=== PATIENT | male | born 1980 | race Hispanic/Latino ===

== ENCOUNTER 2018-05-29 09:19 | Inpatient (IN) | payer SELFPAY ==
[~2018-05-29] VITALS: Ht 180.3 cm; Wt 111.1 kg
[2018-05-29 09:50] LABS: BILIRUBIN,URINE Negative (NEGATIVE); COLOR,URINE Yellow (YELLOW); GLUCOSE, URINE (UA) Negative (NEGATIVE); KETONES,URINE Negative (NEGATIVE); LEUKOCYTE ESTERASE ,URINE Negative (NEGATIVE); NITRATE,URINE Negative (NEGATIVE); OCCULT BLOOD,URINE Negative (NEGATIVE); PH,URINE 5.5 (5.0-8.0); PROTEIN,URINE Negative (NEGATIVE); UROBILINOGEN,URINE 0.2 mg/dL (0.2-1.0)
[2018-05-29 09:52] LABS: BASOPHILS % (AUTO) 0.6 % (0.0-5.0); EOSINOPHILS % (AUTO) 0.7 % (0.0-8.0); HEMATOCRIT 47.7 % (42-54); MEAN CORPUSCULAR HEMOGLOBIN 32.7 pg (27.0-33.0); MEAN CORPUSCULAR HGB CONC 34.2 g/dL (32.0-36.0); MEAN CORPUSCULAR VOLUME 95.5 fL (79-99); MONOCYTES % (AUTO) 8.2 % (3.0-13.0); NEUTROPHILS % (AUTO) 78.5 % (40.0-77.0); PLATELET COUNT (AUTO) 277 K/uL (130-400); RED BLOOD CELL COUNT(AUTO) 4.99 MIL/uL (4.50-6.20); RED CELL DISTRIBUTION WIDTH 12.9 % (11.0-15.5); WHITE BLOOD COUNT (AUTO) 16.2 K/uL (4.8-10.8)
[2018-05-29 09:55] LABS: APPEARANCE,URINE CLEAR (CLEAR)
[2018-05-29] MEDS ORDERED: SODIUM CHLORIDE 0.9% 1000ML 1,000 ML IV ONE (09:56)
[2018-05-29] MEDS ORDERED: MORPHINE SULFATE 4 MG/1ML SYG ONE (09:56)
[2018-05-29] MEDS ORDERED: ONDANSETRON HCL 4 MG/2 ML VIAL ONE (09:56)
[2018-05-29 10:01] LABS: POTASSIUM 3.8 mmol/L (3.5-5.1)
[2018-05-29 10:08] LABS: ALBUMIN 4.3 g/dL (3.5-5.0); BILIRUBIN,TOTAL 0.6 mg/dL (0.2-1.0); TOTAL PROTEIN, SERUM 8.5 g/dL (6.0-8.3)
[2018-05-29] MEDS ORDERED: IOHEXOL 350 MG/ML 100ML INFUS..BTL IV ONE (10:38)
[2018-05-29] MEDS: SODIUM CHLORIDE 0.9% 1000ML 1,000 ML IV SCH ×2 (11:49→20:30)
[2018-05-29] MEDS ORDERED: HYDRALAZINE HCL 20 MG/ML VIAL IV PRN (12:00)
[2018-05-29] MEDS ORDERED: ZOSYN 3.375GM+NS 50ML 50 ML IV ONE (12:13)
[2018-05-29 13:00] VITALS: BP 135/87
[2018-05-29] MEDS: ZOSYN 3.375GM+NS 50ML 50 ML IV SCH ×2 (13:00→20:29)
[2018-05-29 16:00] VITALS: BP 134/79
[2018-05-29] MEDS ORDERED: LISI10TA7 PO (16:11)
[2018-05-29 20:00] VITALS: BP 136/90
[2018-05-29] MEDS: FAMOTIDINE/PF 20 MG/2 ML VIAL IV SCH (20:29)
[2018-05-29] MEDS: MORPHINE SULFATE 4 MG/1ML SYG IV PRN ×2 (22:29→22:31)
[2018-05-30] VITALS (23 sets, daily range): BP systolic 112–181; BP diastolic 66–94
[2018-05-30] MEDS: SODIUM CHLORIDE 0.9% 1000ML 1,000 ML IV SCH ×3 (05:11→19:49)
[2018-05-30] MEDS: ZOSYN 3.375GM+NS 50ML 50 ML IV SCH ×3 (05:11→21:00)
--- NOTE | 2018-05-30 06:08 | NUR ---
PATIENT UPDATE PT NPO POST MN, GOING FOR LAP APPENDECTOMY POSSIBLE OPEN APPE AND INDICATED PROCEDURES. MEDICATED ONCE FOR PAIN WITH MORPHINE 2 MG SLOW IV PUSH FOR PAIN BEFORE MIDNIGHT, 4MG TAKEN OUT FROM THE OMNICELL BUT PT OPTED TO BE GIVEN ONLY 2 MG FOR A PAIN SCORE OF 8 BEC HE SAID IT MAKES HIM DIZZY. SLEPT WELL OVERNIGHT, VITAL SIGNS STABLE. NO FURTHER ABDOMINAL PAIN, NO NAUSEA AND VOMITING.
[2018-05-30] MEDS: FAMOTIDINE/PF 20 MG/2 ML VIAL IV SCH ×2 (08:43→21:00)
[2018-05-30] MEDS: ENOXAPARIN SODIUM 40 MG/0.4 ML SYRINGE SQ SCH (08:46)
[2018-05-30] MEDS ORDERED: LACTATED RINGERS 1000ML 1,000 ML IV ONE (08:50)
[2018-05-30] MEDS ORDERED: LIDOCAINE 1%-EPI 1:100,000 20 ML VIAL IJ ONE (08:53)
[2018-05-30] MEDS ORDERED: BUPIVACAINE/PF 0.25% 30ML VIAL IJ ONE (08:53)
--- NOTE | 2018-05-30 09:00 | NUR ---
PATIENT TAKEN DOWNSTAIRS FOR PROCEDURE. AWAKE AND ALERT, VOICES NO COMPLAINTS.
[2018-05-30] MEDS ORDERED: LIDOCAINE PF 2% 5ML ABBOJECT ONE (09:13)
[2018-05-30] MEDS ORDERED: MIDAZOLAM HCL 1 MG/ML 2ML VIAL ONE (09:14)
[2018-05-30] MEDS ORDERED: FENTANYL CITRATE PF 50 MCG/1 ML 2ML VIAL ONE (09:14)
[2018-05-30] MEDS ORDERED: PROPOFOL 10 MG/ML 20ML VIAL IV ONE (09:14)
[2018-05-30] MEDS ORDERED: ROCURONIUM 10MG/1ML SYR 10 MG/ML ML ONE (09:14)
[2018-05-30] MEDS ORDERED: FENTANYL CITRATE PF 50 MCG/1 ML 5ML AMP IV ONE (09:31)
[2018-05-30] MEDS ORDERED: ONDANSETRON HCL 4 MG/2 ML VIAL ONE (10:11)
[2018-05-30] MEDS ORDERED: DEXAMETHASONE SOD PHOSPHATE 4 MG/ML 1ML VIAL ONE (10:11)
[2018-05-30] MEDS ORDERED: NEOSTIGMINE 5MG/5ML SYR IV ONE (10:12)
[2018-05-30] MEDS ORDERED: GLYCOPYRROLATE 1 MG/5 ML SYRINGE ONE (10:12)
--- NOTE | 2018-05-30 11:45 | NUR ---
PATIENT ARRIVED FROM PACU. AWAKE AND ALERT. THREE 2X2 WITH TEGADERM DRESSINGS INTACT TO ANTERIOR ABDOMEN. NO SIGNS AND SYMPTOMS OF BLEEDING.
[2018-05-30] MEDS ORDERED: ONDANSETRON HCL 4 MG/2 ML VIAL IVP PRN (12:15)
[2018-05-30] MEDS: MORPHINE SULFATE 2 MG/ML 1ML SYG IV PRN ×2 (12:44→17:17)
--- NOTE | 2018-05-30 17:00 | NUR ---
DAVID PICKETT, IND NO DME, EMPLOYED, PLAN HOME, SELF PAY PKT PENDING Addendum: 05/30/18 at 2005 by DOMITILA ZARATE RN CM Amended: Links added.
--- NOTE | 2018-05-30 22:17 | NUR ---
COMFORT MEDICATED WITH MORPHINE 2 MG SLOW IV PUSH FOR A PAIN SCORE OF 8/10 AT 2217. S/P LAPAROSCOPIC APPENDECTOMY, SMALL GAUZE DRESSINGS X 4 DRY AND INTACT. PT CONTINUES WITH THE NS AT 125 CC/HR AND THE ZOSYN IV ANTIBIOTIC Q 8 HRS. TOLERATING REGULAR DIET WELL, NO COMPLAINTS OF NAUSEA.
[2018-05-31 03:00] VITALS: BP 134/81
[2018-05-31] MEDS: ZOSYN 3.375GM+NS 50ML 50 ML IV SCH ×3 (04:32→23:28)
[2018-05-31] MEDS: OXYCODONE/ACETAMIN 5/325MG TAB PO PRN ×2 (04:35→20:14)
[2018-05-31] MEDS: SODIUM CHLORIDE 0.9% 1000ML 1,000 ML IV SCH (04:36)
[2018-05-31 05:00] LABS: HEMATOCRIT 41.6 % (42-54); MEAN CORPUSCULAR HEMOGLOBIN 32.9 pg (27.0-33.0); MEAN CORPUSCULAR HGB CONC 34.4 g/dL (32.0-36.0); MEAN CORPUSCULAR VOLUME 95.5 fL (79-99); PLATELET COUNT (AUTO) 291 K/uL (130-400); RED BLOOD CELL COUNT(AUTO) 4.36 MIL/uL (4.50-6.20); RED CELL DISTRIBUTION WIDTH 12.6 % (11.0-15.5); WHITE BLOOD COUNT (AUTO) 12.5 K/uL (4.8-10.8)
[2018-05-31 05:10] LABS: POTASSIUM 3.9 mmol/L (3.5-5.1)
[2018-05-31 08:00] VITALS: BP 146/79
[2018-05-31] MEDS: FAMOTIDINE/PF 20 MG/2 ML VIAL IV SCH ×2 (08:48→21:00)
[2018-05-31] MEDS: ENOXAPARIN SODIUM 40 MG/0.4 ML SYRINGE SQ SCH (08:49)
[2018-05-31] MEDS ORDERED: LEVO500T2 PO (09:17)
[2018-05-31 12:00] VITALS: BP 145/90
[2018-05-31] MEDS: LACTULOSE 20 GM/30 ML UDCUP PO SCH (12:16)
--- NOTE | 2018-05-31 12:16 | NUR ---
PATIENT HASNT HAD A BM. GAVE LACTULOSE ORDERED
[2018-05-31 16:00] VITALS: BP 175/83
[2018-05-31] MEDS ORDERED: BISACODYL 10 MG SUPP.RECT RC ONE (16:00)
--- NOTE | 2018-05-31 16:16 | NUR ---
DR. MCGREGOR HERE TO SEE PATIENT. PATIENT STILL HAS NOT HAD A BM. DULCOLAX GIVEN. ENCOURAGED PATIENT TO AMBULATE IN HALLWAY. DRINK WATER. PATIENT IS PASSING FLATUS. NO NAUSEA/ VOMITING.
[2018-05-31] MEDS ORDERED: MAGNESIUM CITRATE 296 ML SOLUTION PO SCH (18:45)
--- NOTE | 2018-05-31 18:52 | NUR ---
PATIENT STILL HASNT HAD BM. DR. MCGREGOR NOTIFIED . NEW ORDERS TO ADMINISTER MAG CITRATE. ABD SLIGHT DISTENDED. DR. MCGREGOR MADE AWARE. DRESSING TO ABD CLEAN DRY AND INTACT.
[2018-05-31 19:25] VITALS: BP 161/97
[2018-05-31] MEDS ORDERED: LORAZEPAM 0.5 MG TABLET PO ONE (20:30)
[2018-05-31 23:20] VITALS: BP 145/92
[2018-06-01] MEDS: OXYCODONE/ACETAMIN 5/325MG TAB PO PRN ×2 (02:39→22:02)
[2018-06-01 03:00] VITALS: BP 146/92
[2018-06-01] MEDS: LACTULOSE 20 GM/30 ML UDCUP PO SCH ×2 (07:42→20:12)
[2018-06-01] MEDS: FAMOTIDINE/PF 20 MG/2 ML VIAL IV SCH ×2 (08:23→20:19)
[2018-06-01] MEDS: LISINOPRIL 10 MG TABLET PO SCH (08:23)
[2018-06-01] MEDS: DOCUSATE SODIUM 100 MG CAP PO SCH ×2 (08:23→20:19)
[2018-06-01] MEDS: ENOXAPARIN SODIUM 40 MG/0.4 ML SYRINGE SQ SCH (08:25)
[2018-06-01 08:28] VITALS: BP 145/95
[2018-06-01 09:26] LABS: BASOPHILS % (AUTO) 1.9 % (0.0-5.0); EOSINOPHILS % (AUTO) 1.3 % (0.0-8.0); HEMATOCRIT 45.5 % (42-54); LYMPHOCYTES % (AUTO) 17.3 % (21.0-51.0); MEAN CORPUSCULAR HEMOGLOBIN 32.4 pg (27.0-33.0); MEAN CORPUSCULAR HGB CONC 33.6 g/dL (32.0-36.0); MEAN CORPUSCULAR VOLUME 96.5 fL (79-99); MONOCYTES % (AUTO) 8.4 % (3.0-13.0); NEUTROPHILS % (AUTO) 71.1 % (40.0-77.0); NUCLEATED RED BLOOD CELLS 0.1 % (0.0-0.19); PLATELET COUNT (AUTO) 292 K/uL (130-400); RED BLOOD CELL COUNT(AUTO) 4.71 MIL/uL (4.50-6.20); RED CELL DISTRIBUTION WIDTH 12.9 % (11.0-15.5); WHITE BLOOD COUNT (AUTO) 9.5 K/uL (4.8-10.8)
[2018-06-01 09:27] LABS: POTASSIUM 3.8 mmol/L (3.5-5.1)
[2018-06-01 11:59] VITALS: BP 135/81
[2018-06-01] MEDS ORDERED: BISACODYL 10 MG SUPP.RECT RC SCH (12:15)
[2018-06-01] MEDS: ZOSYN 3.375GM+NS 50ML 50 ML IV SCH ×2 (13:13→20:19)
--- NOTE | 2018-06-01 13:13 | NUR ---
PATIENT STILL HAS NOT HAD A BM. NOTIFIED DR. MCGREGOR. GAVE DULCOLAX ORDERED. WILL CONTINUE TO ASSESS.
[2018-06-01 15:41] VITALS: BP 126/87
[2018-06-01] MEDS ORDERED: MAGNESIUM CITRATE 296 ML SOLUTION PO SCH (17:30)
[2018-06-01] MEDS ORDERED: MAGNESIUM CITRATE 296 ML SOLUTION ONE (17:33)
--- NOTE | 2018-06-01 17:48 | NUR ---
DR. MCGREGOR HERE TO SEE PATIENT . ORDERS TO GIVE MAG. CITRATE. PATIENT HAS CONTINUED TO AMBULATE IN HALLWAY. PATIENT STATES HAS HAD LIQUID STOOLS BUT FEELS HE NEEDS TO GO MORE. WILL CONTINUE TO OBSERVE. . DR. MCGREGOR STATES HE WILL BE BACK TO SEE PATIENT LATER TONIGHT.
[2018-06-01 19:20] VITALS: BP 152/92
[2018-06-01 23:20] VITALS: BP 129/84
[2018-06-02 03:20] VITALS: BP 122/80
--- NOTE | 2018-06-02 04:15 | NUR ---
BM Pt states he's been having loose stools since he took Mag Citrate yesterday.
[2018-06-02] MEDS: ZOSYN 3.375GM+NS 50ML 50 ML IV SCH (04:55)
[2018-06-02 07:00] VITALS: BP 130/66
[2018-06-02] MEDS: LISINOPRIL 10 MG TABLET PO SCH (08:54)
[2018-06-02] MEDS: DOCUSATE SODIUM 100 MG CAP PO SCH (09:00)
[2018-06-02] MEDS: FAMOTIDINE/PF 20 MG/2 ML VIAL IV SCH (09:00)
[2018-06-02] MEDS: ENOXAPARIN SODIUM 40 MG/0.4 ML SYRINGE SQ SCH (09:00)
--- NOTE | 2018-06-02 10:30 | NUR ---
DISCHARGE PATIENT GIVEN DISCHARGE INSTRUCTIONS VIA TEACH BACK. RX GIVEN FOR LEVAQUIN 500MG 1 TAB PO QD X 5 DAYS, ZOFRAN, COLACR AND TYLENOL #3. PATIENT TO FOLLOW UP WITH PCP IN [address] MCGREGOR ON 06/10/18 AT 1500. 20G PIV TO LFA DISCONTINUED, TIP INTACT. PATIENT STABLE, STERI-STRIPS INTACT.
== END 2018-06-02 10:30 | disposition home or self-care (01) | DRG 343 ==
LOC: EDH 09:19 → EDHIP 09:20 → 3CH 13:45
PROVIDERS: ADMIT Internal Medicine; ATTEND Internal Medicine
PROC: 0DTJ4ZZ Resection of Appendix, Percutaneous Endoscopic Approach (ICD-10-PCS; principal; 2018-05-30 09:18)
DX: K35.80 Unspecified acute appendicitis (principal); I10 Essential (primary) hypertension; F17.210 Nicotine dependence, cigarettes, uncomplicated; K59.00 Constipation, unspecified; F41.9 Anxiety disorder, unspecified
CPT/HCPCS: 36415; 74018; 74177; 76705; 80048; 80053; 81003; 83690; 85025; 85027; 88304; 93005; A4344; G0378; J1100; J1650; J2001; J2250; J2270; J2405; J2543; J2704; J2710; J3010; J3490; J7030; J7120; Q9967